=== PATIENT | female | born 1975 | race Caucasian/White ===

== ENCOUNTER 2016-04-26 13:53 | Emergency (ER) | payer OTHER ==
[2016-04-26] MEDS ORDERED: NS 1,000 ML IV ONE (16:05)
--- NOTE | 2016-04-26 16:05 | EDPHY ---
H & P Time Seen by Provider: 04/26/16 16:00 HPI/ROS: Chief complaint. [Abdominal pain ] HPI. Patient is a 40-year-old female with lower right abdominal pain for 1 week. It is worse with movement. She has had slight loose stools for 2 weeks. She notes decreased appetite but no nausea vomiting. No fever. No urinary symptoms. Previous abdominal surgery was a D and C.Patient has a history of ovarian cysts however this feels somewhat differently. ROS Constitutional. [no fever/chills, no weakness] Eyes. [no problems with vision] ENT. [no sore throat, no nasal drainage] Cardiovascular. [no chest pain] Respiratory. [no shortness of breath, no cough] Abdominal. lower right abdominal pain . [no problems urinating] MS. [no calf pain/swelling, no neck/back pain, no joint pain] Skin. [no rash] Lymph. [no swollen glands] Neuro. [no headache, no dizziness, no difficulty walking or with speech] Past Medical/Surgical History: Ovarian cyst, D and C, tonsillectomy Social History: , daily smoker, no alcohol Smoking Status: Light smoker Physical Exam: General Appearance: Alert well-developed female mild distress vital signs are stable Eyes:[ Pupils equal and round no pallor or injection]. ENT,[ Mouth: Mucous membranes are moist.] Respiratory: [There are no retractions, lungs are clear to auscultation.] Cardiovascular:[ Regular rate and rhythm.] Gastrointestinal: abdomen is soft with mild tenderness in the right lower quadrant. No rebound tenderness no masses. Normal bowel sounds Neurological: [Awake and alert, sensory and motor exams grossly normal.] Skin:[ Warm and dry, no rashes.] Musculoskeletal: [Neck is supple nontender.] Extremities [ symmetrical, full range of motion.] Psychiatric:[ Patient is oriented X 3, there is no agitation.] Constitutional: Initial Vital Signs Temperature (C) 36.7 C 04/26/16 13:56 Heart Rate 90 04/26/16 13:56 Respiratory Rate 16 04/26/16 13:56 Blood Pressure 112/79 04/26/16 13:56 O2 Sat (%) 96 04/26/16 13:56 O2 Delivery Mode Room Air Allergies/Adverse Reactions: No Known Allergies Allergy (Unverified 04/26/16 14:08) Home Medications: Medication Instructions Recorded NK [No Known Home Meds] 04/26/16 Medical Decision Making - Diagnostics Imaging: appendix not visulaized but no secondary siogns of inflammation per Dr. Paiz hemorrhagice cyst in right ovary [address] abdomen and pelvis with IV contrast reviewed by me and discussed with Dr. Lorenzo shows a normal appendix. 2.6 cm right ovarian cyst Procedures: IV normal saline ED Course/Re-evaluation: Re-evaluation 7:10 p.m.-- Differential Diagnosis: I considered certainly appendicitis. It appears that the patient does not have appendicitis as she has a normal appendix on CT. She has a 2 cm right ovarian cyst that is likely the cause of her pain and pain. I considered ectopic as well as diverticulitis and urinary tract infection - Data Points Laboratory Results: Laboratory Results 04/26/16 15:55 04/26/16 15:55 Medications Given: Discontinued Medications Sodium Chloride (Ns) 1,000 mls @ 0 mls/hr IV ONCE ONE PRN Reason: Wide Open Stop: 04/26/16 16:06 Last Admin: 04/26/16 18:35 Dose: 1,000 mls Departure - Departure Disposition: Home, Routine, Self-Care Clinical Impression: Abdominal pain, Ovarian cyst Condition: Good Instructions: Ovarian Cyst (ED) Additional Instructions: Heat to low abdomen. Ibuprofen 600 mg every 6 hours. Return for worsening symptoms. Recheck in 2-3 days if not improving Referrals: Milton Lombardo DO [Primary Care Provider] - 2-3 days, call for appt.
[2016-04-26 16:08] LABS: % IMMATURE GRANULYOCYTES 0.2 % (0.0-1.1); ABSOLUTE IMMATURE GRANULOCYTES 0.02 10^3/uL (0.00-0.10); ADD DIFF? NO; ADD MORPH? NO; ADD SCAN? NO; ATYPICAL LYMPHOCYTE FLAG 10 (0-99); FRAGMENT RBC FLAG 0 (0-99); HEMATOCRIT 40.7 % (38.0-47.0); HEMOGLOBIN 14.1 g/dL (12.6-16.3); LEFT SHIFT FLG 0 (0-99); LIPEMIA HEMOLYSIS FLAG 90 (0-99); MEAN CELL HEMOGLOBIN 30.7 pg (27.9-34.1); MEAN CELL HEMOGLOBIN CONCENTR. 34.6 g/dL (32.4-36.7); MEAN CELL VOLUME 88.7 fL (81.5-99.8); MEAN PLATELET VOLUME 11.1 fL (8.7-11.7); PLATELET CLUMPS FLAG 0 (0-99); PLATELET COUNT 241 10^3/uL (150-400); RED BLOOD CELL COUNT 4.59 10^6/uL (4.18-5.33); RED CELL DISTRIBUTION WIDTH 12.8 % (11.5-15.2)
[2016-04-26 16:18] LABS: COLOR YELLOW; LEUKOCYTE ESTERASE,URINE NEGATIVE (NEGATIVE); NITRITE,URINE NEGATIVE (NEGATIVE)
[2016-04-26 17:06] LABS: ANION GAP 12 mEq/L (8-16); CALCIUM 9.5 mg/dL (8.5-10.4); CARBON DIOXIDE 20 mEq/l (22-31); CHLORIDE 107 mEq/L (97-110); CREATININE 0.7 mg/dL (0.6-1.0); GLOMERULAR FILTRATION RATE > 60; GLUCOSE 90 mg/dL (70-100); POTASSIUM 4.1 mEq/L (3.5-5.2); SODIUM 139 mEq/L (134-144)
[2016-04-26] MEDS ORDERED: IOPAMIDOL (ISOVUE-300) 100 ML BTL IV ONE (18:35)
[2016-04-26 19:59] VITALS: BP 128/78; PULSE 70; RESP 14; TEMP 98.4; O2SAT 94
== END 2016-04-26 19:57 | disposition home or self-care (01) ==
DX: N83.209 Unspecified ovarian cyst, unspecified side (principal); F17.200 Nicotine dependence, unspecified, uncomplicated
CPT/HCPCS: Q9967